=== PATIENT | female | born 1945 | race Caucasian/White ===

== ENCOUNTER 2023-01-07 05:20 | Day surgery (SDC) | payer MEDICARE, OTHER ==
[~2023-01-07 05:20] MED LIST: Lactated Ringers 1,000 ML IV SCH; Morphine 8 MG, EPINEPHrine 0.3 MG, Cefuroxime 750 MG, Ketorolac 30 MG, Sodium Chloride ... PRN; Sodium Chloride 0.9% 10 ML Syringe FLUSH PRN; Sodium Chloride 0.9% 10 ML Syringe FLUSH SCH
[2023-01-07] MEDS ORDERED: Midazolam 1 MG/ML 2 ML SDV ONE (05:45)
[2023-01-07] MEDS ORDERED: ceFAZolin 2 GM Vial ONE (05:45)
[2023-01-07] MEDS ORDERED: Lactated Ringers 1,000 ML ONE (05:45)
[2023-01-07] MEDS ORDERED: Propofol 200 MG/20 ML SDV ONE ×2 (05:45→07:51)
[2023-01-07] MEDS ORDERED: Dexmedetomidine 200 MCG/2 ML SDV ONE (05:50)
[2023-01-07] MEDS ORDERED: EPINEPHrine 1 MG/ML SDV ONE (05:50)
[2023-01-07] MEDS ORDERED: Ropivacaine 0.5% 5 MG/ML 30 ML SDV ONE (05:50)
[2023-01-07] MEDS ORDERED: oxyCODONE ER 10 MG TAB.ER PO SCH (06:00)
[2023-01-07] MEDS ORDERED: Morphine 8 MG, EPINEPHrine 0.3 MG, Cefuroxime 750 MG, Ketorolac 30 MG, Sodium Chloride ... PRN ×5 (06:00)
[2023-01-07] MEDS ORDERED: Pregabalin 25 MG Cap PO SCH (06:00)
[2023-01-07] MEDS ORDERED: Acetaminophen 325 MG Tab PO SCH (06:00)
[2023-01-07] MEDS ORDERED: Triamcinolone Acetonide 40 MG/ML 1 ML SDV ONE ×2 (06:05→06:07)
[2023-01-07] MEDS ORDERED: Tranexamic Acid 1,000 MG/10 ML Vial ONE (06:05)
[2023-01-07] MEDS ORDERED: Vancomycin 1 GM SDV ONE (06:05)
[2023-01-07] MEDS ORDERED: Bupivacaine 0.25% 10 ML SDV ONE (06:07)
[2023-01-07] MEDS ORDERED: Dexamethasone 4 MG/ML 5 ML MDV ONE (07:00)
[2023-01-07] MEDS ORDERED: Ondansetron 4 MG/2 ML SDV ONE (07:00)
[2023-01-07] MEDS ORDERED: ePHEDrine 50 MG/ML SDV ONE (07:04)
[2023-01-07] MEDS ORDERED: HYDROmorphone 0.5 MG/0.5 ML Syringe IVPUSH PRN (07:10)
[2023-01-07] MEDS ORDERED: Ondansetron 4 MG/2 ML SDV IVPUSH PRN (07:10)
[2023-01-07] MEDS: fentaNYL 100 MCG/2 ML SDV IVPUSH PRN ×2 (09:19→09:33)
[2023-01-07] MEDS ORDERED: oxyCODONE 5 MG Tab PO ONE (13:40)
== END 2023-01-07 13:50 | disposition home or self-care (01) ==
LOC: JD.SDS 05:20
PROVIDERS: ATTEND Orthopaedic Surgery
DX: M17.0 Bilateral primary osteoarthritis of knee (principal); E78.5 Hyperlipidemia, unspecified; I10 Essential (primary) hypertension; E03.9 Hypothyroidism, unspecified; M81.0 Age-related osteoporosis without current pathological fracture; F32.A Depression, unspecified; Z79.899 Other long term (current) drug therapy; Z96.649 Presence of unspecified artificial hip joint; Z82.61 Family history of arthritis; Z98.84 Bariatric surgery status; Z79.890 Hormone replacement therapy; Z79.01 Long term (current) use of anticoagulants
CPT/HCPCS: 01402; 64447; 73560-26-RT; 73560-RT; 97110-GP; 97116-GP; 97161-GP; 99100; A9270-GY; C1713; C1776; J0171; J0690; J0697; J1100; J1885; J2250; J2270; J2405; J2704; J2795; J3010; J3301; J3370; J3490; J7030; J7120

== ENCOUNTER 2023-11-19 11:47 | Day surgery (SDC) | payer MEDICARE, OTHER ==
[2023-11-19] MEDS: Polymyxin B/Trimethoprim 10 ML Bottle EYERT SCH (13:15)
[2023-11-19] MEDS: Brimonidine 0.2% Ophth Soln 5 ML Bottle EYERT SCH (13:18)
[2023-11-19] MEDS: Phenylephrine 2.5% Ophth Soln 2 ML Bot EYERT SCH (13:21)
[2023-11-19] MEDS: Tropicamide 1% Ophth Soln 3 ML Bottle EYERT SCH (13:25)
[2023-11-19] MEDS: Tetracaine HCl/PF 0.5% 4 ML Bottle EYEBOTH SCH (13:57)
[2023-11-19] MEDS: Lidocaine 1% PF 2 ML SDV INJECT SCH (14:49)
[2023-11-19] MEDS: Pilocarpine 4% Ophth Soln 15 ML Bot EYERT SCH (15:01)
[2023-11-19] MEDS: Cefuroxime 10 MG/ML SYRINGE EYERT SCH (15:01)
== END 2023-11-19 15:15 | disposition home or self-care (01) ==
LOC: JD.SDS 11:47
PROVIDERS: ATTEND Ophthalmology
DX: H25.813 Combined forms of age-related cataract, bilateral (principal); I10 Essential (primary) hypertension; F32.A Depression, unspecified; Z79.899 Other long term (current) drug therapy
CPT/HCPCS: 66984; A9270; J0697; J3490

== ENCOUNTER 2023-12-17 07:49 | Day surgery (SDC) | payer MEDICARE, OTHER ==
[2023-12-17] MEDS: Polymyxin B/Trimethoprim 10 ML Bottle EYELF SCH (08:09)
[2023-12-17] MEDS: Brimonidine 0.2% Ophth Soln 5 ML Bottle EYELF SCH (08:13)
[2023-12-17] MEDS: Phenylephrine 2.5% Ophth Soln 2 ML Bot EYELF SCH (08:17)
[2023-12-17] MEDS: Tropicamide 1% Ophth Soln 3 ML Bottle EYELF SCH (08:23)
[2023-12-17] MEDS: Tetracaine HCl/PF 0.5% 4 ML Bottle EYEBOTH SCH (09:43)
[2023-12-17] MEDS: Lidocaine 1% PF 2 ML SDV INJECT SCH (10:11)
[2023-12-17] MEDS: Cefuroxime 10 MG/ML SYRINGE EYELF SCH (10:21)
[2023-12-17] MEDS: Pilocarpine 4% Ophth Soln 15 ML Bot EYELF SCH (10:21)
== END 2023-12-17 10:31 | disposition home or self-care (01) ==
LOC: JD.SDS 07:49
PROVIDERS: ATTEND Ophthalmology
DX: H25.812 Combined forms of age-related cataract, left eye (principal); H16.103 Unspecified superficial keratitis, bilateral; H16.223 Keratoconjunctivitis sicca, not specified as Sjogren's, bilateral; H43.393 Other vitreous opacities, bilateral; H02.831 Dermatochalasis of right upper eyelid; H02.834 Dermatochalasis of left upper eyelid; I10 Essential (primary) hypertension; F32.A Depression, unspecified; Z79.899 Other long term (current) drug therapy
CPT/HCPCS: 66984; A9270; J0697; J3490

== ENCOUNTER 2024-01-28 06:00 | Day surgery (SDC) | payer MEDICARE, OTHER ==
[~2024-01-28 06:00] MED LIST changes: -Lactated Ringers 1,000 ML IV SCH; -Morphine 8 MG, EPINEPHrine 0.3 MG, Cefuroxime 750 MG, Ketorolac 30 MG, Sodium Chloride ... PRN
[2024-01-28] MEDS ORDERED: Midazolam 1 MG/ML 2 ML SDV ONE (06:09)
[2024-01-28] MEDS ORDERED: fentaNYL 100 MCG/2 ML SDV ONE (06:09)
[2024-01-28] MEDS ORDERED: Ropivacaine 0.5% 5 MG/ML 30 ML SDV ONE (06:09)
[2024-01-28] MEDS: Lactated Ringers 1,000 ML IV SCH (06:15)
[2024-01-28] MEDS ORDERED: Propofol 200 MG/20 ML SDV ONE ×3 (06:30)
[2024-01-28] MEDS: Acetaminophen 325 MG Tab PO ONE (06:49)
[2024-01-28] MEDS: Pregabalin 25 MG Cap PO ONE (06:50)
[2024-01-28] MEDS: oxyCODONE ER 10 MG TAB.ER PO ONE (06:51)
[2024-01-28] MEDS ORDERED: Ondansetron 4 MG/2 ML SDV ONE (07:23)
[2024-01-28] MEDS ORDERED: ePHEDrine 50 MG/ML SDV ONE (07:23)
[2024-01-28] MEDS ORDERED: ceFAZolin 2 GM Vial ONE (07:23)
[2024-01-28] MEDS ORDERED: Dexamethasone 4 MG/ML 5 ML MDV ONE (07:23)
[2024-01-28] MEDS ORDERED: Phenylephrine 1% 10 MG/ML SDV ONE (07:45)
[2024-01-28] MEDS: Morphine 8 MG, EPINEPHrine 0.3 MG, Cefuroxime 750 MG, Ketorolac 30 MG, Sodium Chloride ... PRN (08:04)
[2024-01-28] MEDS: Tranexamic Acid 1,000 MG/10 ML Vial ONE (08:11)
[2024-01-28] MEDS: Vancomycin 1 GM SDV ONE (08:11)
[2024-01-28] MEDS: oxyCODONE 5 MG Tab PO PRN (12:30)
== END 2024-01-28 13:30 | disposition home or self-care (01) ==
LOC: JD.SDS 06:00
PROVIDERS: ATTEND Orthopaedic Surgery
DX: M17.12 Unilateral primary osteoarthritis, left knee (principal); I10 Essential (primary) hypertension; E03.9 Hypothyroidism, unspecified; F32.A Depression, unspecified; Z79.890 Hormone replacement therapy; Z79.899 Other long term (current) drug therapy
CPT/HCPCS: 0055T; 27447; 73560; 97162; A9270; C1713; C1776; J0171; J0690; J0697; J1100; J1885; J2250; J2270; J2371; J2405; J2704; J2795; J3010; J3370; J7120; 01402; J3490